=== PATIENT | male | born 1990 | race Two or more races ===

== ENCOUNTER 2018-06-12 17:27 | Emergency (ER) | payer BC, MEDICAID ==
[~2018-06-12] VITALS: Ht 170.2 cm; Wt 92.9 kg
--- NOTE | 2018-06-12 17:51 | NUR ---
PT. WAS CALLED NOT IN THE LOBBY.
[2018-06-12] MEDS ORDERED: KETOROLAC 30 MG/1 ML ONE (19:16)
[2018-06-12 19:21] VITALS: BP 123/71
[2018-06-12] MEDS ORDERED: KETOROLAC 30 MG/1 ML IM ONE (19:30)
--- NOTE | 2018-06-12 19:44 | NUR ---
Patient/Caregiver given discharge instructions and they have confirmed that they understand the instructions. Patient ambulatory with steady gait.
== END 2018-06-12 19:45 | disposition home or self-care (01) ==
LOC: ED 19:00
DX: S09.8XXA Other specified injuries of head, initial encounter (principal); S16.1XXA Strain of muscle, fascia and tendon at neck level, initial encounter; S29.012A Strain of muscle and tendon of back wall of thorax, initial encounter; S39.012A Strain of muscle, fascia and tendon of lower back, initial encounter; F17.200 Nicotine dependence, unspecified, uncomplicated; V49.49XA Driver injured in collision with other motor vehicles in traffic accident, initial encounter; Y93.89 Activity, other specified; Y92.410 Unspecified street and highway as the place of occurrence of the external cause; Y99.8 Other external cause status
CPT/HCPCS: 72020; 72050; 72072; 73130; 96372; 99283; J1885